=== PATIENT | female | born 1950 | race Caucasian/White ===

== ENCOUNTER 2024-10-15 18:52 | Emergency (ER) | payer MEDICARE ==
[~2024-10-15] VITALS: Ht 160 cm; Wt 68.5 kg
[2024-10-15 19:41] VITALS: TEMP 98.4
[2024-10-15 20:04] LABS: BASOPHILS # (AUTO) 0.1 (0.0-0.1); BASOPHILS % 0.7 % (0.0-1.0); EOSINOPHILS # (AUTO) 0.1 (0.0-0.4); EOSINOPHILS % 0.6 % (0.0-6.0); HEMATOCRIT 39.4 % (34.2-44.1); LYMPHOCYTES # (AUTO) 2.5 (1.0-3.2); LYMPHOCYTES % 30.7 % (18.0-39.1); MEAN CORPUSCULAR HEMOGLOBIN 28.4 pg (28-32); MONOCYTES # (AUTO) 0.5 (0.2-0.8); NEUTROPHILS # (AUTO) 5.1 (2.1-6.9); NEUTROPHILS % 61.8 % (38.7-80.0); PLATELET COUNT 271 x10e3/uL (140-360); RED BLOOD COUNT 4.58 x10e6/uL (3.6-5.1); RED CELL DISTRIBUTION WIDTH 14.5 % (11.7-14.4); WHITE BLOOD COUNT 8.18 x10e3/uL (4.8-10.8)
[2024-10-15 20:29] LABS: ALBUMIN 4.2 g/dL (3.5-5.0); ALBUMIN/GLOBULIN RATIO 1.3 (0.8-2.0); ANION GAP 15.2 mmol/L (8-16); BILIRUBIN,TOTAL 0.9 mg/dL (0.2-1.2); CALCIUM 9.9 mg/dL (8.4-10.2); CREATININE, SERUM 0.85 mg/dL (0.57-1.11); POTASSIUM 4.2 mmol/L (3.5-5.1); TOTAL PROTEIN 7.5 g/dL (6.5-8.1)
[2024-10-15 20:38] LABS: BILIRUBIN,URINE NEGATIVE (NEGATIVE); CLARITY,URINE CLEAR (CLEAR); COLOR,URINE YELLOW (YELLOW); GLUCOSE, URINE >=1000 (NEGATIVE); KETONES,URINE 1+ (NEGATIVE); LEUKOCYTE ESTERASE ,URINE SMALL (NEGATIVE); NITRITE,URINE NEGATIVE (NEGATIVE); PH,URINE 5.5 (5 - 7); PROTEIN,URINE DIPSTICK 1+ (NEGATIVE); URINE UROBILINOGEN 0.2 mg/dL (0.2 - 1)
[2024-10-15 20:42] LABS: BACTERIA,URINE MODERATE /HPF; EPITHELIAL CELLS,URINE MODERATE /LPF; WBC,URINE (MAN) 21-50 /HPF (0-5)
[2024-10-15 21:49] VITALS: PULSE 88; RESP 15
[2024-10-15] MEDS ORDERED: CEPHALEXIN500 MG PO (22:06)
[2024-10-15 22:26] VITALS: BP 142/68; PULSE 84; RESP 16; TEMP 98.8; O2SAT 98
[2024-10-16] MEDS ORDERED: SENNA LAXATIVE8.6 MG PO (20:49)
[2024-10-16] MEDS ORDERED: SORBITOL1 ML PO (20:49)
[2024-10-16] MEDS ORDERED: CEFDINIR300 MG PO (20:49)
== END 2024-10-15 22:34 | disposition home or self-care (01) ==
LOC: ER 18:55
DX: R10.30 Lower abdominal pain, unspecified (principal); N39.0 Urinary tract infection, site not specified; K59.00 Constipation, unspecified; F41.9 Anxiety disorder, unspecified; E11.65 Type 2 diabetes mellitus with hyperglycemia; I10 Essential (primary) hypertension
CPT/HCPCS: 36415; 74176; 80053; 81001; 85025; 99284

== ENCOUNTER 2024-10-16 20:21 | Emergency (ER) | payer MEDICARE ==
[~2024-10-16] VITALS: Ht 160 cm; Wt 68.5 kg
[~2024-10-16 20:21] MED LIST: CEPHALEXIN500 MG PO
[2024-10-16 20:27] VITALS: PULSE 97; RESP 18; TEMP 97.6
[2024-10-16] MEDS ORDERED: CEFDINIR300 MG PO (20:49)
[2024-10-16] MEDS ORDERED: SENNA LAXATIVE8.6 MG PO (20:49)
[2024-10-16] MEDS ORDERED: SORBITOL1 ML PO (20:49)
[2024-10-16] MEDS: CEFTRIAXONE 1 GM VIAL IM ONE (21:32)
[2024-10-17 03:55] VITALS: BP 144/76; PULSE 84; RESP 18; TEMP 97.9; O2SAT 97
== END 2024-10-16 22:20 | disposition home or self-care (01) ==
LOC: FSED 20:24
DX: R60.9 Edema, unspecified (principal); N39.0 Urinary tract infection, site not specified; K59.00 Constipation, unspecified; F41.9 Anxiety disorder, unspecified; R53.81 Other malaise; I10 Essential (primary) hypertension; E11.9 Type 2 diabetes mellitus without complications; E78.5 Hyperlipidemia, unspecified
CPT/HCPCS: 93970; 99283; J0696

== ENCOUNTER 2024-10-21 12:12 | Inpatient (IN) | payer MEDICARE ==
[~2024-10-21] VITALS: Ht 160 cm; Wt 65.5 kg
[~2024-10-21 12:12] MED LIST changes: +CEFDINIR300 MG PO; +SENNA LAXATIVE8.6 MG PO; +SORBITOL1 ML PO
[2024-10-21] MEDS ORDERED: NAPROSYN500 MG PO (13:10)
[2024-10-21] MEDS ORDERED: METFORMIN HCL500 MG PO (13:10)
[2024-10-21] MEDS ORDERED: ATORVASTATIN CA20 MG PO (13:10)
[2024-10-21] MEDS ORDERED: LISINOPRIL10 MG PO (13:10)
[2024-10-21] MEDS ORDERED: GLIPIZIDE5 MG PO (13:10)
[2024-10-21] MEDS ORDERED: TRADJENTA5 MG (13:10)
[2024-10-21] MEDS: LACTATED RINGER'S 1,000 ML INJ ONE (13:14)
[2024-10-21] MEDS ORDERED: ACETAMINOPHEN 325 MG TAB PO PRN (13:45)
[2024-10-21] MEDS ORDERED: LACTATED RINGER'S 1,000 ML IV SCH (13:45)
[2024-10-21] MEDS: SODIUM CHLORIDE 0.9% 1000ML 1,000 ML IV SCH (15:02)
[2024-10-21] MEDS: FAMOTIDINE 20 MG TAB PO SCH (15:03)
[2024-10-21 18:21] VITALS: TEMP 98.1
[2024-10-21] MEDS ORDERED: DEXTROSE 50% SYRINGE 50 ML IV PRN (18:45)
[2024-10-21 20:00] VITALS: PULSE 80; RESP 22
[2024-10-21] MEDS: INSULIN REGULAR, HUMAN 100 UNIT/1 ML SQ SCH (21:00)
[2024-10-21] MEDS ORDERED: CEFTRIAXONE 1 GM VIAL IV SCH (21:00)
[2024-10-21 21:03] VITALS: BP 150/76; PULSE 77; RESP 16; TEMP 97.3; O2SAT 100
[2024-10-21 21:10] VITALS: BP 150/76; PULSE 77; RESP 16; TEMP 97.3; O2SAT 100
[2024-10-21] MEDS ORDERED: VITAMIN B-121000 MC1 PO (22:08)
[2024-10-22] VITALS (10 sets, daily range): BP systolic 118–155; BP diastolic 53–81; PULSE 65–85; RESP 16–20; TEMP 97–98.4; O2SAT 96–100
[2024-10-22] MEDS ORDERED: ALBUTEROL/IPRATROPIUM 3 ML NEB NEB PRN (07:30)
[2024-10-22] MEDS ORDERED: METOPROLOL TARTRATE INJ 1 MG/ML VIAL IV PRN (07:30)
[2024-10-22] MEDS ORDERED: SIMETHICONE 80 MG CHEW PO PRN (07:30)
[2024-10-22] MEDS ORDERED: DOCUSATE SODIUM 100 MG CAP PO PRN (07:30)
[2024-10-22 08:42] LABS: BASOPHILS % 0.6 % (0.0-1.0); EOSINOPHILS # (AUTO) 0.1 (0.0-0.4); EOSINOPHILS % 0.7 % (0.0-6.0); HEMATOCRIT 37.3 % (34.2-44.1); HEMOGLOBIN 12.4 g/dL (12.0-16.0); LYMPHOCYTES # (AUTO) 1.6 (1.0-3.2); LYMPHOCYTES % 22.9 % (18.0-39.1); MEAN CORPUSCULAR HGB CONC 33.2 g/dL (31-35); MEAN CORPUSCULAR VOLUME 84.2 fL (81-99); MONOCYTES # (AUTO) 0.5 (0.2-0.8); MONOCYTES % 7.2 % (4.4-11.3); NEUTROPHILS # (AUTO) 4.8 (2.1-6.9); NEUTROPHILS % 68.5 % (38.7-80.0); PLATELET COUNT 254 x10e3/uL (140-360); RED BLOOD COUNT 4.43 x10e6/uL (3.6-5.1); RED CELL DISTRIBUTION WIDTH 13.9 % (11.7-14.4); WHITE BLOOD COUNT 7.04 x10e3/uL (4.8-10.8)
[2024-10-22 09:08] LABS: ALBUMIN 3.4 g/dL (3.5-5.0); ANION GAP 14.2 mmol/L (8-16); BILIRUBIN,DIRECT 0.3 mg/dL (0.0-0.5); BILIRUBIN,TOTAL 0.8 mg/dL (0.2-1.2); CALCIUM 8.8 mg/dL (8.4-10.2); CREATININE, SERUM 0.64 mg/dL (0.57-1.11); PHOSPHORUS 2.6 MG/DL (2.3-4.7); TOTAL PROTEIN 6.2 g/dL (6.5-8.1)
[2024-10-22] MEDS: PAROXETINE HCL 20 MG TAB PO SCH (09:14)
[2024-10-22] MEDS: CYANOCOBALAMIN 1,000 MCG TAB PO SCH (09:14)
[2024-10-22] MEDS: SENNOSIDES 8.6 MG TAB PO SCH (09:15)
[2024-10-22 09:25] LABS: POTASSIUM 3.2 mmol/L (3.5-5.1)
[2024-10-22] MEDS: MAGNESIUM SULFATE 2GM/50ML 50 ML IV ONE (10:23)
[2024-10-22] MEDS: ENOXAPARIN SOD INJ 40 MG/0.4 ML SYR SC SCH (17:19)
[2024-10-22] MEDS: ATORVASTATIN 20 MG TAB PO SCH (20:37)
[2024-10-23] VITALS (9 sets, daily range): BP systolic 132–166; BP diastolic 63–93; PULSE 63–98; RESP 16–20; TEMP 97.7–98.6; O2SAT 96–100
[2024-10-23 08:39] LABS: BASOPHILS # (AUTO) 0.1 (0.0-0.1); EOSINOPHILS # (AUTO) 0.1 (0.0-0.4); EOSINOPHILS % 1.3 % (0.0-6.0); HEMATOCRIT 38.8 % (34.2-44.1); HEMOGLOBIN 13.1 g/dL (12.0-16.0); LYMPHOCYTES # (AUTO) 2.1 (1.0-3.2); LYMPHOCYTES % 33.1 % (18.0-39.1); MEAN CORPUSCULAR HEMOGLOBIN 28.4 pg (28-32); MEAN CORPUSCULAR HGB CONC 33.8 g/dL (31-35); MONOCYTES # (AUTO) 0.4 (0.2-0.8); MONOCYTES % 6.7 % (4.4-11.3); NEUTROPHILS # (AUTO) 3.7 (2.1-6.9); NEUTROPHILS % 57.7 % (38.7-80.0); PLATELET COUNT 251 x10e3/uL (140-360); RED BLOOD COUNT 4.62 x10e6/uL (3.6-5.1); RED CELL DISTRIBUTION WIDTH 13.7 % (11.7-14.4); WHITE BLOOD COUNT 6.31 x10e3/uL (4.8-10.8)
[2024-10-23 09:21] LABS: CALCIUM 8.5 mg/dL (8.4-10.2); CREATININE, SERUM 0.64 mg/dL (0.57-1.11)
[2024-10-23] MEDS: MELATONIN 3 MG TAB PO PRN (21:10)
[2024-10-24] VITALS (10 sets, daily range): BP systolic 143–180; BP diastolic 64–76; PULSE 65–87; RESP 17–18; TEMP 97.2–98.1; O2SAT 96–100
[2024-10-24 08:53] LABS: CLARITY,URINE CLOUDY (CLEAR); COLOR,URINE YELLOW (YELLOW); GLUCOSE, URINE 500 (NEGATIVE); LEUKOCYTE ESTERASE ,URINE NEGATIVE (NEGATIVE); NITRITE,URINE NEGATIVE (NEGATIVE); PH,URINE 5.5 (5 - 7); PROTEIN,URINE DIPSTICK TRACE (NEGATIVE)
[2024-10-24 08:54] LABS: BACTERIA,URINE FEW /HPF; BILIRUBIN,URINE NEGATIVE (NEGATIVE); EPITHELIAL CELLS,URINE MODERATE /LPF; KETONES,URINE >=160 (NEGATIVE); URINE UROBILINOGEN 0.2 mg/dL (0.2 - 1)
[2024-10-24 08:56] LABS: YEAST,URINE MODERATE
[2024-10-24] MEDS: SENNOSIDES 8.6 MG TAB PO SCH (09:00)
[2024-10-24] MEDS: DOCUSATE SODIUM 100 MG CAP PO SCH (09:38)
[2024-10-24 10:30] LABS: ANION GAP 18.1 mmol/L (8-16); CALCIUM 8.9 mg/dL (8.4-10.2); CREATININE, SERUM 0.62 mg/dL (0.57-1.11)
[2024-10-24 10:36] LABS: BASOPHILS # (AUTO) 0.1 (0.0-0.1); BASOPHILS % 0.9 % (0.0-1.0); EOSINOPHILS % 0.3 % (0.0-6.0); HEMATOCRIT 40.9 % (34.2-44.1); HEMOGLOBIN 13.7 g/dL (12.0-16.0); LYMPHOCYTES # (AUTO) 1.2 (1.0-3.2); LYMPHOCYTES % 15.5 % (18.0-39.1); MEAN CORPUSCULAR HEMOGLOBIN 28.6 pg (28-32); MEAN CORPUSCULAR HGB CONC 33.5 g/dL (31-35); MEAN CORPUSCULAR VOLUME 85.4 fL (81-99); MONOCYTES # (AUTO) 0.4 (0.2-0.8); MONOCYTES % 4.6 % (4.4-11.3); NEUTROPHILS # (AUTO) 6.1 (2.1-6.9); NEUTROPHILS % 78.3 % (38.7-80.0); PLATELET COUNT 251 x10e3/uL (140-360); RED BLOOD COUNT 4.79 x10e6/uL (3.6-5.1); RED CELL DISTRIBUTION WIDTH 13.7 % (11.7-14.4); WHITE BLOOD COUNT 7.75 x10e3/uL (4.8-10.8)
[2024-10-24 10:44] LABS: POTASSIUM 3.1 mmol/L (3.5-5.1)
[2024-10-25] VITALS (7 sets, daily range): BP systolic 125–183; BP diastolic 62–79; PULSE 62–99; RESP 18; TEMP 98.1–98.4; O2SAT 96–100
[2024-10-25] MEDS: ENALAPRILAT IV INJ 1.25 MG/ML VIAL IV PRN (00:30)
[2024-10-25] MEDS ORDERED: SENOKOT8.6 MG PO (05:44)
[2024-10-25] MEDS ORDERED: CEPHALEXIN500 MG PO (05:45)
[2024-10-25 05:48] LABS: BASOPHILS # (AUTO) 0.1 (0.0-0.1); BASOPHILS % 0.6 % (0.0-1.0); EOSINOPHILS # (AUTO) 0.1 (0.0-0.4); EOSINOPHILS % 0.8 % (0.0-6.0); LYMPHOCYTES # (AUTO) 2.2 (1.0-3.2); LYMPHOCYTES % 28.7 % (18.0-39.1); MEAN CORPUSCULAR HEMOGLOBIN 28.2 pg (28-32); MEAN CORPUSCULAR HGB CONC 33.3 g/dL (31-35); MEAN CORPUSCULAR VOLUME 84.6 fL (81-99); MONOCYTES # (AUTO) 0.6 (0.2-0.8); MONOCYTES % 7.2 % (4.4-11.3); NEUTROPHILS # (AUTO) 4.8 (2.1-6.9); NEUTROPHILS % 62.4 % (38.7-80.0); PLATELET COUNT 270 x10e3/uL (140-360); RED BLOOD COUNT 4.61 x10e6/uL (3.6-5.1); RED CELL DISTRIBUTION WIDTH 13.6 % (11.7-14.4); WHITE BLOOD COUNT 7.76 x10e3/uL (4.8-10.8)
[2024-10-25] MEDS ORDERED: MILK OF MA2400 MG/10 PO (05:49)
[2024-10-25] MEDS: METOPROLOL TARTRATE 25 MG TAB PO SCH (05:55)
[2024-10-25 06:18] LABS: ANION GAP 20.1 mmol/L (8-16); CALCIUM 8.8 mg/dL (8.4-10.2); CREATININE, SERUM 0.59 mg/dL (0.57-1.11)
[2024-10-25] MEDS: MAGNESIUM HYDROXIDE 30 ML UDC PO SCH (06:20)
[2024-10-25 06:37] LABS: POTASSIUM 3.1 mmol/L (3.5-5.1)
== END 2024-10-25 15:15 | disposition home or self-care (01) | DRG 690 ==
LOC: FSED 12:21 → ERHOLD 13:42 → MED/SURG2 20:55
PROVIDERS: ADMIT Internal Medicine; ATTEND Internal Medicine
DX: N39.0 Urinary tract infection, site not specified (principal); E86.0 Dehydration; R60.0 Localized edema; I10 Essential (primary) hypertension; F41.9 Anxiety disorder, unspecified; E11.9 Type 2 diabetes mellitus without complications; Z79.84 Long term (current) use of oral hypoglycemic drugs; E78.5 Hyperlipidemia, unspecified; F32.A Depression, unspecified; K59.00 Constipation, unspecified; R53.81 Other malaise; Z59.6 Low income
CPT/HCPCS: 36415; 80048; 80053; 80076; 81001; 81003; 82948; 83735; 84100; 85025; 87086; 94799; 96372; 99252; 99284; J0696; J1650; J3475; J7030

== ENCOUNTER 2024-12-19 11:30 | Emergency (ER) | payer MEDICARE ==
[~2024-12-19] VITALS: Ht 157.5 cm; Wt 58.5 kg
[~2024-12-19 11:30] MED LIST changes: +ATORVASTATIN CA20 MG PO; +GLIPIZIDE5 MG PO; +LISINOPRIL10 MG PO; +METFORMIN HCL500 MG PO; +MILK OF MA2400 MG/10 PO; +NAPROSYN500 MG PO; +SENOKOT8.6 MG PO; +TRADJENTA5 MG; +VITAMIN B-121000 MC1 PO
[2024-12-19 11:41] VITALS: TEMP 99
[2024-12-19] MEDS ORDERED: IOPAMIDOL 370 MG/ML 100 ML INFUS..BTL INJ ONE (12:01)
[2024-12-19] MEDS: LORAZEPAM INJ 2 MG/ML VIAL IV ONE (12:02)
[2024-12-19 13:10] VITALS: PULSE 69; RESP 18
[2024-12-19] MEDS ORDERED: ATIVAN0.5 MG PO (13:18)
[2024-12-19] MEDS ORDERED: GOLYTELY SOLU4000 M1 PO (13:18)
[2024-12-19 13:32] VITALS: BP 140/67; RESP 18; O2SAT 97
== END 2024-12-19 13:33 | disposition home or self-care (01) ==
LOC: FSED 11:36
DX: K59.00 Constipation, unspecified (principal); F41.9 Anxiety disorder, unspecified; I10 Essential (primary) hypertension; E11.65 Type 2 diabetes mellitus with hyperglycemia; E78.5 Hyperlipidemia, unspecified
CPT/HCPCS: 74176; 80053; 81003; 85025; 99284; J2060; Q9967